=== PATIENT | male | born 1980 | race Caucasian/White ===

== ENCOUNTER 2024-08-12 16:04 | Emergency (ER) | payer SELFPAY ==
[2024-08-12 16:09] VITALS: BP 120/72; PULSE 96; RESP 16; TEMP 36.4; O2SAT 95; BMI 25.0
--- NOTE | 2024-08-12 16:26 | CRLHL7_ITS ---
For Patients: As a result of the Century Cures Act, medical imaging exams and procedure reports are released immediately into your electronic medical record. You may view this report before your referring provider. If you have questions, please contact your health care provider. INDICATION: Headache. Trauma. TECHNIQUE: Non-contrast CT of the head is submitted. No comparisons. FINDINGS: The ventricles, sulci and gyri are of normal size, shape and contour. Midline structures are centrally located. 2.1 centimeter CSF density lesion along the posterior medial aspect of the left cerebellum compatible with an incidental arachnoid cyst. No convincing evidence of intra- or extra-axial fluid collections. IMPRESSION: 1. No radiographic evidence of acute intracranial abnormalities. Please note that all CT scans at this facility use dose modulation, iterative reconstruction, and/or weight-based dosing when appropriate to reduce radiation dose to as low as reasonably achievable. Dictated by Yasmany Ruano MD @ 08/12/2024 4:44:44 PM (Electronically Signed)
--- NOTE | 2024-08-12 16:26 | ED_ITS ---
HPI - General Adult General Chief complaint: Fall/Minor Trauma Stated complaint: Fall 2 days ago, not feeling right, pain crown Time Seen by Provider: 08/12/24 16:18 History of Present Illness HPI narrative: Patient is a 44 year white male who is here with his mom lives in [place], he lives in [place], he fell backwards about 4 days ago and hit the back of his head. He does not think he was knocked out but he did see stars. He has had a history of a head injury in the past before. He reports he is on no home medications. He does report that he has occasional episodes of ?stress? where he ?shuts down for a day or 2. ?. He states he has remorse stress related and physicians in in [place] when he was traveling there, told him that this was stressed. He denies chest pain, breathing problem, neurologic complaints, does feel a little bit cough with his thinking. He did hit the occiput of his head. He still gets some mild tenderness there. Related Data Home Medications ?Medication ?Instructions ?Recorded ?Confirmed No Known Home Medications 08/12/24 08/12/24 Allergies Allergy/AdvReac Type Severity Reaction Status Date / Time No Known Drug Allergies Allergy Verified 08/12/24 16:16 Review of Systems Status of ROS: Reports: 6 or more systems reviewed and unremarkable except as noted in History and below [facility] Social History Non-prescribed substance use: denies use Exam Narrative: Exam Narrative: Objective vital signs within normal limits in general patient apparent distress he is alert or x3 No facial asymmetry Neurologic nonfocal upper extremities Skin mild tenderness over a bump in the back of his head over his occiput, but there is no step-off He has got no neurologic findings in his upper lower extremities as mention and he has had no vomiting at this point. Const: Vital Signs, click to edit/add: Vital Signs - 24 hr 08/12/24 16:09 Temperature 97.5 F L Pulse Rate [Pulse Oximeter] 96 Respiratory Rate 16 Blood Pressure [Ri ght Upper Arm] 120/72 Pulse Oximetry 95 Oxygen Delivery Me thod Room Air Course Vital Signs Vital signs: Initial Vital Signs Temperature 97.5 F L 08/12/24 16:09 Temperature Source Temporal Artery Scan 08/12/24 16:09 Pulse Rate 96 08/12/24 16:09 Respiratory Rate 16 08/12/24 16:09 Blood Pressure 120/72 08/12/24 16:09 Blood Pressure Mean 88 08/12/24 16:09 Blood Pressure Position Sitting 08/12/24 16:09 Pulse Oximetry 95 08/12/24 16:09 Oxygen Delivery Method Room Air 08/12/24 16:09 Vital Signs Temperature 97.5 F L 08/12/24 16:09 Pulse Rate 96 08/12/24 16:09 Respiratory Rate 16 08/12/24 16:09 Blood Pressure 120/72 08/12/24 16:09 Pulse Oximetry 95 08/12/24 16:09 Oxygen Delivery Method Room Air 08/12/24 16:09 Temperature 97.5 F L 08/12/24 16:09 Pulse Rate 96 08/12/24 16:09 Respiratory Rate 16 08/12/24 16:09 Blood Pressure 120/72 08/12/24 16:09 Pulse Oximetry 95 08/12/24 16:09 Oxygen Delivery Method Room Air 08/12/24 16:09 Medical Decision Making MDM Narrative Medical decision making narrative: [age] year white male with history of post concussive syndrome after hitting the back of his head. Given that he still has symptoms I think it be reasonable to get a CT scan of his head without contrast to make sure does not have any bleed or contusion to his brain. Will review with him at its return. If this is negative then I recommend he follow up with primary care in the next 7-10 days, light activity in the interim no heavy exertion or contact activities or sports. Would hold off on any workout sore exercise. He can take Tylenol as needed for discomfort. And he can recheck with primary care as above. This is all pending his CT scan being unremarkable. Addendum 4:46 p.m.: The patient's head CT is read as negative by Radiology. Treatment plan as above. Discharge Plan Discharge Clinical Impression: Closed head injury Patient Disposition: Home w/ Parent or Adult Condition: Stable Additional Instructions: Recommend rest over the next 7-10 days, no contact activities, no exercise. Recommend recheck with primary care in the next 7-10 days. He may take Tylenol for discomfort or headache. Return to the ED if if other concerns or worsening. Activity Level: Light activity Discharge Diet: Regular Prescriptions: No Action No Known Home Medications Stand Alone Forms: [employer] Info Instructions
== END 2024-08-12 16:56 | disposition home or self-care (01) ==
LOC: ED 16:36
PROVIDERS: Emergency Provider Family Medicine
DX: S09.90XA Unspecified injury of head, initial encounter (principal); W19.XXXA Unspecified fall, initial encounter
CPT/HCPCS: 70450; 99284